=== PATIENT | female | born 1990 | race Hispanic/Latino ===

== ENCOUNTER → 2023-11-09 08:56 | Outpatient (REF) | payer OTHER, SELFPAY ==
[2023-11-09 09:41] LABS: % Basophils 1.3 % (0-2); % Eosinophils 6.5 % (0-6); % Immature Granulocytes 0.2 % (0-0.5); % Lymphocytes 29.4 % (20.5-51.1); % Monocytes 7.8 % (1.7-9.3); % Neutrophils 54.8 % (42.2-75.2); Absolute Basophils 0.1 10^3/uL (0-0.2); Absolute Eosinophils 0.4 10^3/uL (0-0.7); Absolute Lymphocytes 1.8 10^3/uL (1.2-3.4); Absolute Monocytes 0.5 10^3/uL (0.1-0.6); Absolute Neutrophils 3.4 10^3/uL (1.4-6.5); Hematocrit 38.1 % (37.0-47.0); Mean Corp Hgb Conc. 31.5 g/dL (33.0-37.0); Mean Corpuscular Hgb 24.7 pg (27.0-31.0); Mean Corpuscular Volume 78.4 fL (81.0-99.0); Mean Platelet Volume 10.1 fL (7.4-10.4); Nucleated Red Blood Cells % 0 %; Platelet Count 314 10^3/uL (130-400); Red Blood Cell Count 4.86 10^6/uL (4.20-5.40); Red Cell Dist. Width 15.3 % (11.5-14.5); White Blood Cell Count 6.1 10^3/uL (4.8-10.8)
[2023-11-09 10:22] LABS: Vitamin D, 25-OH*** 28.5 ng/mL (30-80)
[2023-11-09 10:23] LABS: HDL Cholesterol 55 mg/dl; LDL Cholesterol, Calculated 117 mg/dl; Total Cholesterol 198 mg/dl (50-199); Triglyceride 130 mg/dl (10-149); Very Low Density Lipoprotein 26 mg/dl (0-30)
== END ==
LOC: CLINIC 08:56
PROVIDERS: ATTENDING PHYSICIAN Nurse Practitioner Acute Care
DX: E78.2 Mixed hyperlipidemia (principal); E64.9 Sequelae of unspecified nutritional deficiency; E55.9 Vitamin D deficiency, unspecified
CPT/HCPCS: 36415; 80061; 82306; 85025

== ENCOUNTER → 2024-03-23 15:56 | Outpatient (REF) | payer OTHER, SELFPAY | LOC: RAD 15:56 | PROVIDERS: ATTENDING PHYSICIAN Nurse Practitioner Acute Care | DX: M77.11 Lateral epicondylitis, right elbow (principal) | CPT/HCPCS: 73070 ==

== ENCOUNTER → 2025-02-05 14:59 | Outpatient (REF) | payer OTHER, SELFPAY ==
[2025-02-05 15:58] LABS: Hematocrit 37.1 % (37.0-47.0); Hemoglobin 11.7 g/dL (12.0-16.0); Mean Corp Hgb Conc. 31.5 g/dL (33.0-37.0); Mean Corpuscular Hgb 25.3 pg (27.0-31.0); Mean Corpuscular Volume 80.1 fL (81.0-99.0); Mean Platelet Volume 10.1 fL (7.4-10.4); Platelet Count 305 10^3/uL (130-400); Red Blood Cell Count 4.63 10^6/uL (4.20-5.40); Red Cell Dist. Width 14.7 % (11.5-14.5); White Blood Cell Count 9.1 10^3/uL (4.8-10.8)
[2025-02-05 16:58] LABS: ALT (SGPT) 33 U/L (0-35); AST (SGOT) 23 U/L (14-36); Albumin 4.1 g/dl (3.5-5.0); Alkaline Phosphatase 99 U/L (38-126); Blood Urea Nitrogen 9 mg/dl (7-17); Calcium 8.6 mg/dl (8.4-10.2); Carbon Dioxide 24 mmol/L (22-30); Chloride 108 mmol/L (98-107); Glucose 98 mg/dl (70-99); Potassium 4.8 mmol/L (3.5-5.1); Sodium 138 mmol/L (135-145); Total Bilirubin 0.3 mg/dl (0.2-1.3); Total Protein 6.8 g/dl (6.3-8.2); eGFR > 60.00
[2025-02-07 19:39] LABS: H. pylori Breath Test Positive (Negative)
== END ==
LOC: REG 14:59
PROVIDERS: ATTENDING PHYSICIAN Nurse Practitioner Adult Health
DX: R10.13 Epigastric pain (principal)
CPT/HCPCS: 36415; 80053; 83013; 85027

== ENCOUNTER → 2025-06-18 16:58 | Outpatient (REF) | payer OTHER, SELFPAY | LOC: CLINIC 16:58 | PROVIDERS: ATTENDING PHYSICIAN Nurse Practitioner Adult Health | DX: A04.8 Other specified bacterial intestinal infections (principal) | CPT/HCPCS: 83013 ==

== ENCOUNTER 2025-07-22 18:44 | Emergency (ER) | payer SELFPAY ==
[2025-07-22 18:52] VITALS: BP 106/58
[2025-07-22 19:47] VITALS: BMI 31.7
[2025-07-22 19:57] VITALS: BP 124/69
[2025-07-22 20:00] VITALS: BP 116/69
--- NOTE | 2025-07-22 20:09 | ED.GENMED ---
History of Present Illness
General
Chief Complaint: Skin Surface Trauma
Source: patient
Exam Limitations: none
Time Seen by Provider: 07/22/25 19:38
History of Present Illness
History of Present Illness:
34yoF presenting with her boyfriend for evaluation of a left lower leg laceration. Patient is [place]ian speaking and history is obtained with the assistance of a video joint maker machine. Patient was taking the trash out about 1 hour ago when she
accidentally cut herself on something in the trash bag causing a laceration. She believes this was glass but is unsure. Bleeding controlled on arrival. No paresthesias. Unknown last Tdap.
Past History
Past History
ED Past Medical History: GERD and Other (migrains, brain tumor)
ED Past Surgical History: None
Social History
Tobacco: Non-smoker
Alcohol: None
Living: with family
Employment: Employed
Phy Exam
General Physical Exam
General Presentation: well appearing and no apparent distress
General Skin: warm and dry
General Habitus: normal
General Mental: alert
ENT Exam
ENT Exam: normocephalic
Pulmonary Exam
Pulmonary Exam: no respiratory distress
Neurological Exam
Neurological Exam: alert
Ricardo Coma Scale
Eye Opening: Spontaneous
Verbal Response: Oriented
Motor Response: Obeys Commands
GCS Total Score: 15
Skin Exam
Skin Exam: warm/dry and other (L lower leg: Approx 6cm linear laceration noted to anterior gutierrez. Wound mildly gaping. No active bleeding. 2+ DP pulse.)
Psychiatric Exam
Psychiatric Exam: normal mood/affect
Course
Orders/Labs/Results
Orders:
Orders
07/22/25 20:08
Tetanus/Diphth/Acelpertussis [Adacel] 0.5 ml IM .ONCE ONE
Vital Signs
Initial and Last Documented VS:
Initial Vital Signs
Temp Pulse Resp BP Pulse Ox
98.4 F 78 18 106/58 100
07/22/25 18:52 07/22/25 18:52 07/22/25 18:52 07/22/25 18:52 07/22/25 18:52
Last Documented Vital Signs
Temp Pulse Resp BP Pulse Ox
98.4 F 85 18 116/75 99
07/22/25 18:52 07/22/25 20:50 07/22/25 20:50 07/22/25 20:50 07/22/25 20:50
Procedures
Laceration Closure
Left Lower Anterior Leg:
Status of Wound: clean
Size of Wound in cm: 6
Description of Wound Edges: sharp
Preparation: cleaned with saline
Anesthesia: 1% Lidocaine with epi
Wound exploration: explored to base- no FB
Type of Closure: single layer closure
Skin Closure Material: 4-0 nylon
Number of sutures: 9
MDM/Problems Addressed
Differential Diagnosis Includes:
34yoF here with a L lower leg laceration. 6cm mildly gaping laceration noted on exam. LLE is neurovascularly intact. Wound irrigated and repaired as above. Tdap updated. Home wound care discussed and patient advised to have sutures removed in 10-14
days. Advised return to the ED with any signs of infection. Patient discharged in stable condition.
*Pulse Oximetry
SaO2: 100
Oxygen Mode of Delivery: Room air
Patient hypoxic: no
*Critical Care Note
Total Time (30-74mins, 75-104mins- exclusive of procedures): Not Applicable
ED Attending Note
-
Portions of this chart may have been created with voice recognition software.� Occasional wrong word or��sound alike� substitutions may have occurred due to the inherent limitations of voice recognition software.
Discharge Plan
Departure
Patient Disposition: Home (Routine Discharge)
Date of Disposition: 07/22/25
Time of Disposition: 20:47
Patient with high blood pressure during this ER visit?: No
Discharge Problem:
Laceration of left lower leg
Instructions: Laceration Repair With Stitches (DC)
Prescriptions:
No Action
levofloxacin 750 mg tablet
750 mg PO DAILY 7 Days Qty: 7 0RF
ondansetron 4 mg tablet,disintegrating
4 mg PO Q8H PRN (Reason: nausea and vomiting) 2 Days Qty: 7 0RF
Referrals:
NONE,* [Family Provider, Internal Medicine]
Stand Alone Forms: Return to Work
Activity Restrictions/Additional Instructions:
Keep wound clean and dry. Keep covered while at work.
Sutures need to be removed in 10-14 days. Return to the ER with any signs of infection.
Interventions
Interventions:
*Risk Screen - Suicide Last Done: 07/22/25 18:52
*General Assessment Last Done: 07/22/25 19:57
*Neglect/Abuse Screening Last Done: 07/22/25 18:52
*ED COVID-19 Vaccine History Last Done: 07/22/25 19:57
*ED Influenza Vaccine History Last Done: 07/22/25 19:57
[facility] Fall Risk Assessment Tool Last Done: 07/22/25 19:57
*Nursing Disposition Last Done: 07/22/25 20:59
ED-Skin Assessment Last Done: 07/22/25 20:59
Discharge Date and Time
Discharge Date/Time: 07/22/25 21:00
Print Language: KHMER
[2025-07-22] MEDS: ADACEL 0.5 ML IM (20:27)
[2025-07-22 20:50] VITALS: BP 116/75
== END 2025-07-22 21:00 | disposition home or self-care (01) ==
LOC: EMR 18:44
PROVIDERS: EMERGENCY PHYSICIAN Student in an Organized Health Care Education/Training Program
DX: S81.812A Laceration without foreign body, left lower leg, initial encounter (principal); W45.8XXA Other foreign body or object entering through skin, initial encounter; Z23 Encounter for immunization; K21.9 Gastro-esophageal reflux disease without esophagitis
CPT/HCPCS: 99282; 12002; 90471; 90715